=== PATIENT | female | born 1950 | race Caucasian/White ===

== ENCOUNTER 2020-05-15 09:35 | Outpatient (CLI) | payer MEDICARE ==
--- NOTE | 2020-05-15 11:17 | MRI ---
CERRVICAL SPINE MRI WITHOUT CONTRAST: Date: 05/15/2020 COMPARISON: None. HISTORY: Bilateral hand numbness, radiculopathy. TECHNIQUE: Multiplanar, multisequence MR imaging of the cervical spine without contrast. FINDINGS: Motion artifact limits detailed assessment of the sagittal T2-weighted imaging. No significant anterolisthesis or retrolisthesis is noted within the cervical spine. The sagittal STI R imaging demonstrates no focal area of osseous marrow edema. There is mild degenerative change at th e atlantoaxial interspace. C2-3: No significant central canal or neural foraminal stenosis. C3-4: No significant central canal or neural foraminal stenosis. C4-5: There is bilateral facet hypertrophy, right greater than left. There is a small central disc p rotrusion partially effacing the ventral thecal sac and causing mild central canal stenosis. There is mild right neural foraminal stenosis. C5-6: There is disc desiccation with disc bulge partially effacing the ventral thecal sac and causin g mild central canal stenosis. Bilateral facet and uncovertebral osteophyte formation, left greater t bey right. Moderate left and mild right neural foraminal stenosis. C6-7: There is disc space narrowing with disc desiccation and disc bulge causing mild central canal stenosis. Facet and uncovertebral osteophyte formation causes moderate left and mild right neural for aminal stenosis. C7-T1: Mild bilateral facet hypertrophy with no significant central canal or neural foraminal stenos is. No focal area of abnormal signal intensity identified within the cervical cord. IMPRESSION: Cervical spine degenerative change as described above. POS: NENO
== END 2020-05-15 09:36 | disposition home or self-care (01) ==
LOC: BICMRI 09:35
PROVIDERS: ATTEND Orthopaedic Surgery Hand Surgery
DX: M48.02 Spinal stenosis, cervical region (principal); M47.812 Spondylosis without myelopathy or radiculopathy, cervical region
CPT/HCPCS: 72141

== ENCOUNTER 2021-01-28 17:34 | Inpatient (IN) | payer MEDICARE ==
[2021-01-28 20:06] VITALS: BMI 28.0
[2021-01-28] MEDS ORDERED: Dextrose 50% Abboject 50 ML SYRINGE SLOW IVP PRN (21:34)
[2021-01-28] MEDS ORDERED: Dextrose 5% in Water 1,000 ML IV PRN (21:34)
[2021-01-28] MEDS ORDERED: Ondansetron PF 4 MG/2 ML Vial IVP PRN (21:34)
[2021-01-28] MEDS: Acetaminophen 325 MG TAB PO SCH (21:53)
[2021-01-28] MEDS: traMADol HCl 50 MG TAB PO SCH (23:36)
[2021-01-28] MEDS: Lactated Ringer's 1,000 ML IV SCH (23:37)
[2021-01-29] MEDS: traMADol HCl 50 MG TAB PO PRN (04:03)
[2021-01-29] MEDS: Acetaminophen 325 MG TAB PO SCH ×4 (04:03→21:10)
[2021-01-29] MEDS: traMADol HCl 50 MG TAB PO SCH ×3 (05:05→17:53)
[2021-01-29 06:38] LABS: #Eosinphils 0.2 thou/uL (0.0-0.7); #Lymphocytes 1.5 thou/uL (1.20-3.40); #Monocytes 0.6 thou/uL (0.11-0.59); #Neutrophils 3.9 thou/uL (1.40-6.50); %Basophils 0.8 % (0.0-1.0); %Eosinophils 2.9 % (0.0-10.0); %Lymphocytes 24.3 % (21.0-51.0); %Monocytes 9.4 % (0.0-10.0); %Neutrophils 62.6 % (42.0-75.0); Mean Corpuscular HGB CONC 33.5 g/dL (32.0-36.0); Mean Corpuscular Hemoglobin 32.5 pg (27.0-31.0); Mean Corpuscular Volume 97.1 fL (78.0-98.0); Mean Platelet Volume 8.7 fL (7.4-10.4); Platelet Count 149 thou/uL (130-400); RBC Distribution Width 12.2 % (11.5-14.5); Red Blood Cell (RBC) Count 3.98 mill/uL (4.20-5.40); White Blood Cell (WBC) Count 6.2 thou/uL (4.8-10.8)
[2021-01-29 06:47] LABS: PTT 33.4 sec (22.9-36.1)
[2021-01-29 06:56] LABS: Phosphorus 3.8 mg/dL (2.3-4.7)
[2021-01-29 06:59] LABS: Anion Gap 11 mmol/L (10-20); BUN (Urea Nitrogen) 19 mg/dL (9.8-20.1); Calc. Creatinine Clearance 82 mL/min (70-130); Calcium 8.9 mg/dL (7.8-10.44); Carbon Dioxide 24 mmol/L (23-31); Chloride 106 mmol/L (98-107); Glucose 99 mg/dL (80-115); Potassium 4.2 mmol/L (3.5-5.1); Sodium 137 mmol/L (136-145)
[2021-01-29] MEDS ORDERED: Levofloxacin 500 mg/D5W 100 ml Premix Bag ONE (08:38)
[2021-01-29] MEDS: Famotidine/PF 20 mg/2ml Vial SLOW IVP SCH ×2 (08:55→21:06)
[2021-01-29] MEDS: Polyethylene Glycol 3350 17 GM Packet PO SCH (08:55)
[2021-01-29] MEDS: Famotidine 20 MG TAB PO SCH ×2 (08:55→21:06)
[2021-01-29] MEDS ORDERED: VANCOMYCIN 1.25 GM/250 ML BAG IVPB SCH (09:00)
[2021-01-29] MEDS ORDERED: Fentanyl 100 MCG/2 ML VIAL ONE ×2 (09:36→11:42)
[2021-01-29] MEDS ORDERED: Lidocaine 1% PF 5 ML VIAL ONE (09:49)
[2021-01-29] MEDS ORDERED: Ondansetron PF 4 MG/2 ML Vial ONE (09:49)
[2021-01-29] MEDS ORDERED: PROPOFOL 200 MG/20 ML VIAL ONE (09:49)
[2021-01-29] MEDS ORDERED: Dexamethasone 20 MG/5 ML VIAL ONE (09:49)
[2021-01-29] MEDS: VANCOMYCIN 1.25 GM/250 ML BAG 1.25 GM in Premix Bag 1 BAG IVPB SCH ×2 (09:56→21:06)
[2021-01-29] MEDS ORDERED: Promethazine HCl 25 MG/ML VIAL SLOW IVP PRN (11:18)
[2021-01-29] MEDS ORDERED: Promethazine HCl 25 MG/ML VIAL IM PRN (11:18)
[2021-01-29] MEDS ORDERED: Ondansetron HCl/PF 4 MG/2 ML Vial IVP PRN (11:18)
[2021-01-29] MEDS ORDERED: HYDROcodone/Acetaminophen 10/325 mg Tablet PO PRN (13:19)
[2021-01-29] MEDS: Lactated Ringer's 1,000 ML IV SCH (14:18)
[2021-01-29] MEDS: HYDROcodone/Acetaminophen 10/325 mg Tablet PO PRN (14:32)
[2021-01-29] MEDS ORDERED: Aspirin 81 mg Enteric Coated Tablet PO SCH (21:00)
[2021-01-29] MEDS: Gabapentin 300 MG CAP PO SCH (21:07)
[2021-01-30] MEDS: traMADol HCl 50 MG TAB PO SCH ×4 (05:03→18:10)
[2021-01-30] MEDS: Acetaminophen 325 MG TAB PO SCH ×4 (05:04→21:17)
[2021-01-30] MEDS: Gabapentin 300 MG CAP PO SCH ×3 (09:11→21:16)
[2021-01-30] MEDS: Aspirin 81 mg Enteric Coated Tablet PO SCH ×2 (09:11→21:16)
[2021-01-30] MEDS: Polyethylene Glycol 3350 17 GM Packet PO SCH (09:17)
[2021-01-30] MEDS: HYDROcodone/Acetaminophen 10/325 mg Tablet PO PRN ×2 (09:17→18:11)
[2021-01-30] MEDS: traMADol HCl 50 MG TAB PO PRN (18:10)
[2021-01-31] MEDS: traMADol HCl 50 MG TAB PO SCH ×5 (00:20→23:58)
[2021-01-31] MEDS: Cepastat Lozenges 1 LOZ PO PRN (00:42)
[2021-01-31] MEDS: Acetaminophen 325 MG TAB PO SCH ×5 (06:00→23:25)
[2021-01-31] MEDS: HYDROcodone/Acetaminophen 10/325 mg Tablet PO PRN (07:11)
[2021-01-31] MEDS: Senokot S 8.6-50 MG TAB PO SCH ×2 (08:48→22:42)
[2021-01-31] MEDS: Aspirin 81 mg Enteric Coated Tablet PO SCH ×2 (08:48→23:26)
[2021-01-31] MEDS: Gabapentin 300 MG CAP PO SCH ×4 (08:49→23:26)
[2021-01-31] MEDS: Cyclobenzaprine 10 MG TAB PO PRN (08:49)
[2021-01-31] MEDS: Polyethylene Glycol 3350 17 GM Packet PO SCH (08:49)
[2021-01-31] MEDS ORDERED: Amlodipine 5 MG TAB PO SCH (09:00)
[2021-01-31] MEDS: Simvastatin 10 MG TAB PO SCH ×2 (22:42→23:27)
[2021-02-01] MEDS: traMADol HCl 50 MG TAB PO SCH ×3 (04:59→18:14)
[2021-02-01] MEDS: Acetaminophen 325 MG TAB PO SCH ×4 (04:59→21:16)
[2021-02-01] MEDS: Cholecalciferol 1,000 UNITS (25 MCG) TAB PO SCH (08:34)
[2021-02-01] MEDS: Senokot S 8.6-50 MG TAB PO SCH ×2 (08:34→21:17)
[2021-02-01] MEDS: Cepastat Lozenges 1 LOZ PO PRN (08:34)
[2021-02-01] MEDS: Polyethylene Glycol 3350 17 GM Packet PO SCH (08:35)
[2021-02-01] MEDS: Gabapentin 300 MG CAP PO SCH ×3 (08:35→21:03)
[2021-02-01] MEDS: Aspirin 81 mg Enteric Coated Tablet PO SCH ×2 (08:35→21:04)
[2021-02-01] MEDS: Amlodipine 5 MG TAB PO SCH (08:35)
[2021-02-01] MEDS: Cyclobenzaprine 10 MG TAB PO PRN (08:36)
[2021-02-01] MEDS: traMADol HCl 50 MG TAB PO PRN (12:18)
[2021-02-01] MEDS: Simvastatin 10 MG TAB PO SCH (21:04)
[2021-02-02] MEDS: traMADol HCl 50 MG TAB PO SCH ×4 (00:10→17:25)
[2021-02-02] MEDS: Acetaminophen 325 MG TAB PO SCH ×5 (05:03→20:26)
[2021-02-02] MEDS: Senokot S 8.6-50 MG TAB PO SCH ×3 (08:44→20:26)
[2021-02-02] MEDS: Polyethylene Glycol 3350 17 GM Packet PO SCH (08:44)
[2021-02-02] MEDS: Aspirin 81 mg Enteric Coated Tablet PO SCH ×2 (08:44→20:26)
[2021-02-02] MEDS: Amlodipine 5 MG TAB PO SCH (08:45)
[2021-02-02] MEDS: Gabapentin 300 MG CAP PO SCH ×3 (08:46→20:26)
[2021-02-02] MEDS: Cholecalciferol 1,000 UNITS (25 MCG) TAB PO SCH (08:47)
[2021-02-02] MEDS: Simvastatin 10 MG TAB PO SCH (20:26)
[2021-02-03] MEDS: traMADol HCl 50 MG TAB PO SCH ×4 (03:22→17:25)
[2021-02-03] MEDS: Acetaminophen 325 MG TAB PO SCH ×4 (06:04→20:19)
[2021-02-03] MEDS: Aspirin 81 mg Enteric Coated Tablet PO SCH ×2 (08:50→20:19)
[2021-02-03] MEDS: Amlodipine 5 MG TAB PO SCH (08:50)
[2021-02-03] MEDS: Gabapentin 300 MG CAP PO SCH ×3 (08:50→20:19)
[2021-02-03] MEDS: Polyethylene Glycol 3350 17 GM Packet PO SCH (08:51)
[2021-02-03] MEDS: Cholecalciferol 1,000 UNITS (25 MCG) TAB PO SCH (08:51)
[2021-02-03] MEDS: Senokot S 8.6-50 MG TAB PO SCH ×2 (08:52→20:19)
[2021-02-03] MEDS: traMADol HCl 50 MG TAB PO PRN (10:51)
[2021-02-03] MEDS: Simvastatin 10 MG TAB PO SCH (20:20)
[2021-02-04] MEDS: traMADol HCl 50 MG TAB PO SCH ×5 (01:21→23:47)
[2021-02-04] MEDS: Acetaminophen 325 MG TAB PO SCH ×4 (06:27→21:48)
[2021-02-04] MEDS: Aspirin 81 mg Enteric Coated Tablet PO SCH ×2 (08:31→20:02)
[2021-02-04] MEDS: Amlodipine 5 MG TAB PO SCH (08:32)
[2021-02-04] MEDS: Cholecalciferol 1,000 UNITS (25 MCG) TAB PO SCH (08:32)
[2021-02-04] MEDS: Gabapentin 300 MG CAP PO SCH ×3 (08:32→20:03)
[2021-02-04] MEDS: Senokot S 8.6-50 MG TAB PO SCH ×2 (08:34→20:04)
[2021-02-04] MEDS: Polyethylene Glycol 3350 17 GM Packet PO SCH (08:34)
[2021-02-04] MEDS: Simvastatin 10 MG TAB PO SCH (20:04)
[2021-02-05] MEDS: Acetaminophen 325 MG TAB PO SCH ×2 (03:32→12:04)
[2021-02-05] MEDS: traMADol HCl 50 MG TAB PO SCH ×2 (05:57→12:03)
[2021-02-05 08:03] VITALS: BP 116/73; TEMP 97.9
[2021-02-05] MEDS: Aspirin 81 mg Enteric Coated Tablet PO SCH (09:01)
[2021-02-05] MEDS: Cholecalciferol 1,000 UNITS (25 MCG) TAB PO SCH (09:02)
[2021-02-05] MEDS: Amlodipine 5 MG TAB PO SCH (09:02)
[2021-02-05] MEDS: Gabapentin 300 MG CAP PO SCH (09:02)
[2021-02-05] MEDS: Polyethylene Glycol 3350 17 GM Packet PO SCH (09:03)
[2021-02-05] MEDS: Senokot S 8.6-50 MG TAB PO SCH (09:03)
== END 2021-02-05 13:28 | DRG 489 ==
LOC: SURG A 17:34
PROVIDERS: ADMIT Surgery; ATTEND Surgery
PROC: 0SQD0ZZ Repair Left Knee Joint, Open Approach (ICD-10-PCS; principal; 2021-01-29)
PROC: 0QSH04Z Reposition Left Tibia with Internal Fixation Device, Open Approach (ICD-10-PCS; 2021-01-29)
DX: S82.142A Displaced bicondylar fracture of left tibia, initial encounter for closed fracture (principal); Z20.822 Contact with and (suspected) exposure to COVID-19; E78.5 Hyperlipidemia, unspecified; I10 Essential (primary) hypertension; Z90.710 Acquired absence of both cervix and uterus; W55.32XA Struck by other hoof stock, initial encounter; Z88.0 Allergy status to penicillin; Z79.899 Other long term (current) drug therapy
CPT/HCPCS: 36415; 76000; 80048; 83735; 84100; 85025; 85610; 85730; C1713; J1100; J1956; J2405; J2704; J3010; J3370

== ENCOUNTER 2021-08-15 10:59 | Outpatient (CLI) | payer MEDICARE | END 2021-08-15 11:00 | disposition home or self-care (01) | LOC: BICMAMMO 10:59 | PROVIDERS: ATTEND Family Medicine | DX: Z12.31 Encounter for screening mammogram for malignant neoplasm of breast (principal) | CPT/HCPCS: 77063; 77067 ==

== ENCOUNTER 2021-10-22 15:24 | Outpatient (CLI) | payer MEDICARE | END 2021-10-22 15:25 | disposition home or self-care (01) | LOC: BICRAD 15:24 | PROVIDERS: ATTEND Family Medicine | DX: M54.50 Low back pain, unspecified (principal); M54.6 Pain in thoracic spine; M47.816 Spondylosis without myelopathy or radiculopathy, lumbar region; M41.9 Scoliosis, unspecified; M47.814 Spondylosis without myelopathy or radiculopathy, thoracic region; M51.34 Other intervertebral disc degeneration, thoracic region | CPT/HCPCS: 72072; 72100 ==

== ENCOUNTER 2022-04-18 11:31 | Outpatient (CLI) | payer MEDICARE | END 2022-04-18 11:32 | disposition home or self-care (01) | LOC: BICMAMMO 11:31 | PROVIDERS: ATTEND Family Medicine | DX: Z13.820 Encounter for screening for osteoporosis (principal); N95.9 Unspecified menopausal and perimenopausal disorder; M85.89 Other specified disorders of bone density and structure, multiple sites | CPT/HCPCS: 77080 ==

== ENCOUNTER 2023-01-10 13:15 | Outpatient (CLI) | payer MEDICARE | END 2023-01-10 13:16 | disposition home or self-care (01) | LOC: BICMAMMO 13:15 | PROVIDERS: ATTEND Family Medicine | DX: Z12.31 Encounter for screening mammogram for malignant neoplasm of breast (principal) | CPT/HCPCS: 77063; 77067 ==

== ENCOUNTER 2023-01-15 08:48 | Outpatient (CLI) | payer MEDICARE | END 2023-01-15 08:49 | disposition home or self-care (01) | LOC: BICRAD 08:48 | PROVIDERS: ATTEND Nurse Practitioner Family | DX: R05.1 Acute cough (principal) | CPT/HCPCS: 71046 ==

== ENCOUNTER 2023-04-22 13:01 | Outpatient (CLI) | payer MEDICARE | END 2023-04-22 13:02 | disposition home or self-care (01) | LOC: BICMAMMO 13:01 | PROVIDERS: ATTEND Family Medicine | DX: Z13.820 Encounter for screening for osteoporosis (principal); M85.851 Other specified disorders of bone density and structure, right thigh; M85.852 Other specified disorders of bone density and structure, left thigh; Z78.0 Asymptomatic menopausal state | CPT/HCPCS: 77080 ==

== ENCOUNTER 2023-05-30 08:39 | Outpatient (CLI) | payer MEDICARE | END 2023-05-30 08:40 | disposition home or self-care (01) | LOC: BICMRI 08:39 | PROVIDERS: ATTEND Specialist | DX: M51.17 Intervertebral disc disorders with radiculopathy, lumbosacral region (principal); M47.26 Other spondylosis with radiculopathy, lumbar region; M47.817 Spondylosis without myelopathy or radiculopathy, lumbosacral region; M51.37 Other intervertebral disc degeneration, lumbosacral region; M89.38 Hypertrophy of bone, other site | CPT/HCPCS: 72148 ==

== ENCOUNTER 2025-09-28 10:41 | Outpatient (CLI) | payer MEDICARE | END 2025-09-28 10:42 | disposition home or self-care (01) | LOC: BICRAD 10:41 | PROVIDERS: ATTEND Family Medicine | DX: J40 Bronchitis, not specified as acute or chronic (principal); R93.89 Abnormal findings on diagnostic imaging of other specified body structures | CPT/HCPCS: 71046 ==

== ENCOUNTER 2025-10-03 07:13 | Emergency (ER) | payer MEDICARE ==
[2025-10-03] MEDS ORDERED: Famotidine/PF 20 mg/2ml Vial ONE (08:16)
[2025-10-03] MEDS ORDERED: diphenhydrAMINE 50 MG/ML VIAL ONE (08:16)
[2025-10-03 08:54] LABS: Hematocrit 38.0 % (36.0-47.0); Hemoglobin 12.8 g/dL (12.0-16.0); Mean Corpuscular Hemoglobin 30.5 pg (27.0-31.0); Mean Corpuscular Volume 90.5 fL (78.0-98.0); Platelet Count 319 10x3/uL (130-400); Red Blood Cell (RBC) Count 4.20 mill/uL (4.20-5.40); White Blood Cell (WBC) Count 10.43 10x3/uL (4.8-10.8)
[2025-10-03 09:00] LABS: ALT (SGPT) 76 U/L (Less than 34); AST (SGOT) 73 U/L (11-34); Albumin 3.0 g/dL (3.1-4.5); Alkaline Phosphatase 71 U/L (40-110); Anion Gap 13 mmol/L (10-20); BUN (Urea Nitrogen) 14 mg/dL (9.8-20.1); Bilirubin, Total 0.5 mg/dL (0.3-1.2); Calc. Creatinine Clearance 0 mL/min (70-130); Calcium 8.8 mg/dL (7.8-10.44); Carbon Dioxide 22 mmol/L (23-31); Chloride 106 mmol/L (98-107); Globulin 3.0 g/dL (2.4-3.5); Glucose 90 mg/dL (83-110); Potassium 4.5 mmol/L (3.5-5.1); Sodium 136 mmol/L (136-145)
[2025-10-03 09:37] LABS: Anisocytosis SLIGHT = 6-15 cells HPF (0-5); Burr Cells SLIGHT = 2-5 cells HPF (0-1); Macrocytosis SLIGHT = 6-15 cells HPF (0-5); Platelet Adequacy Comment Platelets Normal; Poikilocytosis SLIGHT = 6-15 cells HPF (0-5); Polychromasia SLIGHT = 2-3 cells HPF (0-2); Smudge Cells 11.9 %
== END 2025-10-03 10:40 | disposition home or self-care (01) ==
LOC: ERS 07:13
DX: T78.40XA Allergy, unspecified, initial encounter (principal); I10 Essential (primary) hypertension
CPT/HCPCS: 71045; 80053; 85025; 87428; J1200; J1308; J2919; 96374; 96375

== ENCOUNTER 2025-10-05 14:25 | Emergency (ER) | payer MEDICARE ==
[2025-10-05] MEDS ORDERED: diphenhydrAMINE 50 MG/ML VIAL ONE (15:32)
[2025-10-05] MEDS ORDERED: Dexamethasone 10 MG/ML VIAL ONE (15:32)
== END 2025-10-05 15:39 | disposition home or self-care (01) ==
LOC: ERS 14:25
DX: T50.905A Adverse effect of unspecified drugs, medicaments and biological substances, initial encounter (principal); I10 Essential (primary) hypertension
CPT/HCPCS: J1100; J1200; 96372; 99282